=== PATIENT | male | born 1965 | race Caucasian/White ===

== ENCOUNTER 2018-10-27 07:08 | Day surgery (SDC) | payer MEDICAID ==
[~2018-10-27] VITALS: Ht 175.3 cm; Wt 167.8 kg
[~2018-10-27 07:08] MED LIST: IBUP-2353 PO
[2018-10-27 07:42] VITALS: BP 145/92
[2018-10-27] MEDS ORDERED: SODIUM CHLORIDE 0.9% 1000ML 1,000 ML IV ONE (08:04)
[2018-10-27 11:22] VITALS: BP 106/53
[2018-10-27 11:27] VITALS: BP 126/76
[2018-10-27 11:32] VITALS: BP 133/81
== END 2018-10-27 11:47 | disposition home or self-care (01) ==
LOC: DAH 07:08 → ENDO 07:08
PROVIDERS: ATTEND Surgery
DX: K21.9 Gastro-esophageal reflux disease without esophagitis (principal); E66.01 Morbid (severe) obesity due to excess calories; Z68.43 Body mass index [BMI] 50.0-59.9, adult; Z79.1 Long term (current) use of non-steroidal anti-inflammatories (NSAID); Z87.891 Personal history of nicotine dependence; Z72.89 Other problems related to lifestyle; Z82.49 Family history of ischemic heart disease and other diseases of the circulatory system
CPT/HCPCS: 43235; A4606; J7030

== ENCOUNTER 2019-11-30 09:00 | Observation (INO) | payer MEDICAID ==
[~2019-11-30] VITALS: Ht 176.5 cm; Wt 112.6 kg
[~2019-11-30 09:00] MED LIST changes: +FLUT1DIS3 IH; -IBUP-2353 PO; +TAMS-1 PO
[2019-11-30 10:53] LABS: HEMATOCRIT 44.2 % (42-54); LYMPHOCYTES % (AUTO) 21.6 % (21.0-51.0); MEAN CORPUSCULAR HEMOGLOBIN 30.6 pg (27.0-33.0); MEAN CORPUSCULAR HGB CONC 32.4 g/dL (32.0-36.0); MEAN CORPUSCULAR VOLUME 94.6 fL (79-99); MONOCYTES % (AUTO) 5.6 % (3.0-13.0); NEUTROPHILS % (AUTO) 62.5 % (40.0-77.0); PLATELET COUNT (AUTO) 294 K/uL (130-400); RED BLOOD CELL COUNT(AUTO) 4.67 MIL/uL (4.50-6.20); RED CELL DISTRIBUTION WIDTH 14.1 % (11.0-15.5); WHITE BLOOD COUNT (AUTO) 8.8 K/uL (4.8-10.8)
[2019-11-30 11:05] LABS: INR 0.92 (0.85-1.15); PARTIAL THROMBOPLASTIN TIME 27.4 SEC (26.3-35.5)
[2019-12-07] VITALS (17 sets, daily range): BP systolic 114–143; BP diastolic 68–86
[2019-12-07] MEDS ORDERED: LACTATED RINGERS 1000ML 1,000 ML IV ONE ×2 (06:59→10:14)
[2019-12-07] MEDS ORDERED: BUPIVACAINE/PF 0.5% 30ML VIAL ONE (06:59)
[2019-12-07] MEDS: CEFAZOLIN SODIUM 1 GM VIAL ONE ×2 (07:03→08:03)
[2019-12-07] MEDS ORDERED: SUCCINYLCHOLINE CHLORIDE 20 MG/ML 10 ML VIAL ONE (07:50)
[2019-12-07] MEDS ORDERED: MIDAZOLAM HCL 1 MG/ML 2ML VIAL ONE (07:50)
[2019-12-07] MEDS ORDERED: ROCURONIUM 10MG/1ML SYR 10 MG/ML ML ONE (07:50)
[2019-12-07] MEDS ORDERED: PROPOFOL 10 MG/ML 20ML VIAL IV ONE (07:50)
[2019-12-07] MEDS ORDERED: ONDANSETRON HCL 4 MG/2 ML VIAL ONE ×2 (07:50→09:28)
[2019-12-07] MEDS ORDERED: LIDOCAINE PF 2% 5ML ABBOJECT ONE (07:50)
[2019-12-07] MEDS ORDERED: FENTANYL CITRATE PF 50 MCG/1 ML 2ML VIAL ONE ×2 (07:51→08:28)
[2019-12-07] MEDS ORDERED: CEFAZOLIN SODIUM 1 GM VIAL IVP ONE (08:03)
[2019-12-07] MEDS ORDERED: GLYCOPYRROLATE 1 MG/5 ML SYRINGE ONE (08:58)
[2019-12-07] MEDS ORDERED: NEOSTIGMINE 5MG/5ML SYR IV ONE (08:58)
[2019-12-07] MEDS ORDERED: MEPERIDINE-PF 25 MG/ML SYG ONE (09:32)
[2019-12-07] MEDS ORDERED: METOCLOPRAMIDE 10 MG/2 ML VIAL ONE (09:39)
--- NOTE | 2019-12-07 10:10 | NUR ---
POST OP RECEIVED PATIENT AND REPORT FROM VITO FARRIS FROM PACU. PT IN NO DISTRESS. PT ORIENTD TO ROOM AND CALL LIGHT. WILL CONTINUE TO MONITOR PT
--- NOTE | 2019-12-07 10:40 | NUR ---
DISCHARGE D/C INSTRUCTIONS GIVEN TO PT AND SPOUSE. BOTH VOICED UNDERSTANDING. PT TAKEN OUT VIA W/C
== END 2019-12-07 10:40 | disposition home or self-care (01) ==
LOC: DAHIP 12-07 06:26 → EDSTATUS 12-07 09:00
PROVIDERS: ADMIT Surgery; ATTEND Surgery
DX: K81.0 Acute cholecystitis (principal); Z20.828 Contact with and (suspected) exposure to other viral communicable diseases; E66.01 Morbid (severe) obesity due to excess calories; Z98.84 Bariatric surgery status
CPT/HCPCS: 36415; 47562; 71045; 85025; 85610; 85730; 93005; 96360; 96361; A4213; A4215; A4221; A4222; A4223; A4649 ×2; A4663; C1769 ×4; G0378 ×4; J0330; J0690 ×2; J2001; J2175; J2250; J2405 ×2; J2704; J2710; J2765; J3010 ×2; J3490 ×2; J7030 ×2; J7120 ×2; U0003

== ENCOUNTER → 2020-01-11 | Outpatient (CLI) | payer MEDICAID | END | disposition home or self-care (01) | LOC: RAH 10:20 | PROVIDERS: ATTEND Surgery | DX: K42.9 Umbilical hernia without obstruction or gangrene (principal); R18.8 Other ascites; K57.30 Diverticulosis of large intestine without perforation or abscess without bleeding | CPT/HCPCS: 74176 ==

== ENCOUNTER 2021-07-22 17:02 | Emergency (ER) | payer MEDICAID ==
[~2021-07-22] VITALS: Ht 175.3 cm; Wt 68.0 kg
[2021-07-22 17:54] LABS: BASOPHILS % (AUTO) 0.3 % (0.0-5.0); EOSINOPHILS % (AUTO) 0.1 % (0.0-8.0); HEMATOCRIT 42.8 % (42-54); LYMPHOCYTES % (AUTO) 6.7 % (21.0-51.0); MEAN CORPUSCULAR HEMOGLOBIN 30.3 pg (27.0-33.0); MEAN CORPUSCULAR HGB CONC 33.2 g/dL (32.0-36.0); MEAN CORPUSCULAR VOLUME 91.3 fL (79-99); MONOCYTES % (AUTO) 2.9 % (3.0-13.0); NEUTROPHILS % (AUTO) 89.5 % (40.0-77.0); PLATELET COUNT (AUTO) 239 K/uL (130-400); RED BLOOD CELL COUNT(AUTO) 4.69 MIL/uL (4.50-6.20); RED CELL DISTRIBUTION WIDTH 12.9 % (11.0-15.5); WHITE BLOOD COUNT (AUTO) 9.9 K/uL (4.8-10.8)
[2021-07-22 18:03] LABS: CREATININE 0.7 mg/dL (0.5-1.5); POTASSIUM 3.8 mmol/L (3.5-5.1)
[2021-07-22 18:09] LABS: BILIRUBIN,TOTAL 1.5 mg/dL (0.2-1.0); TOTAL PROTEIN, SERUM 6.2 g/dL (6.0-8.3)
[2021-07-22] MEDS ORDERED: 0.9%NACL 1000ML 1,000 ML IV ONE (18:30)
[2021-07-22] MEDS ORDERED: MORPHINE 4 MG SYG IVP ONE (18:30)
[2021-07-22] MEDS ORDERED: ONDANSETRON 4MG INJ IVP ONE (18:30)
[2021-07-22] MEDS ORDERED: HYOS0.124 SL (19:10)
[2021-07-22] MEDS ORDERED: PANT40TA PO (19:10)
[2021-07-22] MEDS ORDERED: ONDA4TAB10 PO (19:10)
[2021-07-22 19:25] VITALS: BP 145/78
[2021-07-22 19:31] LABS: APPEARANCE,URINE Cloudy (CLEAR); BILIRUBIN,URINE Negative (NEGATIVE); COLOR,URINE Yellow (YELLOW); GLUCOSE, URINE (UA) Negative (NEGATIVE); KETONES,URINE 15 mg/dL (NEGATIVE); LEUKOCYTE ESTERASE ,URINE Trace (NEGATIVE); NITRATE,URINE Negative (NEGATIVE); OCCULT BLOOD,URINE Negative (NEGATIVE); PROTEIN,URINE Negative (NEGATIVE)
[2021-07-22 20:40] LABS: AMORPHOUS SEDIMENT,UR Few /LPF (None Seen); BACTERIA,URINE Few /HPF (None Seen); MUCUS,URINE Moderate LPF (None Seen); RBC,URINE 0-1 /HPF (0-1); SQUAMOUS EPITHELIAL CELL,UR Few /HPF (0-2); URIC ACID CRYSTALS,URINE Few /LPF (None Seen)
[2021-07-22 20:41] LABS: HYALINE CASTS, URINE 0-1 /LPF (0-1 /LPF)
== END 2021-07-22 19:26 | disposition home or self-care (01) ==
LOC: EDH 17:02
DX: R10.13 Epigastric pain (principal); R11.2 Nausea with vomiting, unspecified; R19.7 Diarrhea, unspecified; R53.1 Weakness; Z90.49 Acquired absence of other specified parts of digestive tract; Z79.899 Other long term (current) drug therapy
CPT/HCPCS: 36415; 74176; 80053; 81001; 83690; 84484; 85025; 93005; 96361; 96374; 96375; 99285; J2270; J2405; J7030

== ENCOUNTER → 2021-08-03 | Outpatient (CLI) | payer MEDICAID ==
[~2021-08-03] MED LIST changes: +HYOS0.124 SL; +ONDA4TAB10 PO; +PANT40TA PO
== END | disposition home or self-care (01) ==
LOC: RAH 07:40
PROVIDERS: ATTEND Internal Medicine Gastroenterology
DX: R18.8 Other ascites (principal)
CPT/HCPCS: 76700

== ENCOUNTER 2022-05-29 11:01 | Inpatient (IN) | payer MEDICAID ==
[~2022-05-29] VITALS: Ht 175.3 cm; Wt 79.6 kg
[~2022-05-29 11:01] MED LIST changes: -HYOS0.124 SL; -ONDA4TAB10 PO
[2022-05-29 12:01] LABS: BASOPHILS % (AUTO) 0.3 % (0.0-5.0); EOSINOPHILS % (AUTO) 0.4 % (0.0-8.0); HEMATOCRIT 26.3 % (42-54); MEAN CORPUSCULAR HEMOGLOBIN 29.6 pg (27.0-33.0); MEAN CORPUSCULAR HGB CONC 32.3 g/dL (32.0-36.0); MEAN CORPUSCULAR VOLUME 91.6 fL (79-99); MONOCYTES % (AUTO) 6.9 % (3.0-13.0); NEUTROPHILS % (AUTO) 86.6 % (40.0-77.0); PLATELET COUNT (AUTO) 453 K/uL (130-400); RED BLOOD CELL COUNT(AUTO) 2.87 MIL/uL (4.50-6.20); RED CELL DISTRIBUTION WIDTH 14.8 % (11.0-15.5)
[2022-05-29 12:19] LABS: ALBUMIN 1.4 g/dL (3.5-5.0); CREATININE 0.5 mg/dL (0.5-1.5); POTASSIUM 4.5 mmol/L (3.5-5.1); TOTAL PROTEIN, SERUM 5.2 g/dL (6.0-8.3)
[2022-05-29 12:22] LABS: APPEARANCE,URINE CLEAR (CLEAR); BILIRUBIN,URINE NEGATIVE (NEGATIVE); COLOR,URINE YELLOW (YELLOW); GLUCOSE, URINE (UA) NEGATIVE (NEGATIVE); KETONES,URINE NEGATIVE (NEGATIVE); LEUKOCYTE ESTERASE ,URINE NEGATIVE Leu/uL (NEGATIVE); NITRATE,URINE NEGATIVE (NEGATIVE); OCCULT BLOOD,URINE NEGATIVE (NEGATIVE); PROTEIN,URINE 20 mg/dL (NEGATIVE); UROBILINOGEN,URINE 0.2 mg/dL (0.2-1.0)
[2022-05-29 12:34] LABS: MUCUS,URINE FEW LPF (None Seen); SQUAMOUS EPITHELIAL CELL,UR RARE /HPF (0-2)
[2022-05-29 12:39] LABS: B-TYPE NATRIURETIC PEPTIDE 10 pg/mL (0-100)
[2022-05-29] MEDS ORDERED: ACETAMINOPHEN 500 MG TABLET PO PRN (16:00)
[2022-05-29] MEDS ORDERED: TAMSULOSIN HCL 0.4 MG CAP.ER.24H PO ONE (17:00)
[2022-05-29] MEDS ORDERED: IPRATROPIUM 0.5 MG/2.5 ML INH IH PRN (17:00)
[2022-05-29 17:34] LABS: INR 1.09 (0.85-1.15); PROTHROMBIN TIME 11.8 SEC (9.6-11.6)
[2022-05-29 17:36] LABS: HEMOGLOBIN A1C 4.9 % (4.0-6.0); PARTIAL THROMBOPLASTIN TIME 31.6 SEC (26.3-35.5)
[2022-05-29 17:45] LABS: B-TYPE NATRIURETIC PEPTIDE 16 pg/mL (0-100)
[2022-05-29] MEDS ORDERED: METO25TA6 PO (17:57)
[2022-05-29] MEDS ORDERED: FLUT1BLS23 IH (17:57)
[2022-05-29] MEDS ORDERED: AMLO-257 PO (17:57)
[2022-05-29] MEDS ORDERED: ACET5SOL2 PO (17:57)
[2022-05-29] MEDS ORDERED: ONDA-104 PO (17:57)
[2022-05-29] MEDS ORDERED: NAPH1PAC2 PO (17:57)
[2022-05-29] MEDS: BUDESONIDE 0.5 MG/2 ML INH IH SCH ×2 (18:00→18:05)
[2022-05-29 18:22] LABS: ERYTHROCYTE SEDIMENTATION RATE 28 MM/HR (0-20)
[2022-05-29] MEDS ORDERED: TAMSULOSIN HCL 0.4 MG CAP.ER.24H ONE (18:28)
[2022-05-29 19:00] VITALS: BP 121/65
[2022-05-29 20:18] LABS: CREATININE,URINE RANDOM 98 mg/dL (30-135); PROTEIN,URINE RANDOM 43.3 mg/dL (0-11.9); SODIUM,URINE RANDOM < 14 mmol/l (40-220)
[2022-05-29] MEDS: HEPARIN 5,000 UNIT VIAL IV PRN (20:38)
[2022-05-29] MEDS: HEPARIN 25,000 UNITS/250ML D5W 250 ML IV SCH (20:44)
[2022-05-29] MEDS: METOPROLOL TARTRATE 25 MG TAB PO SCH (20:55)
[2022-05-29] MEDS: CEFTRIAXONE 1G VIAL IVP SCH (20:56)
[2022-05-29] MEDS: FAMOTIDINE 20MG VIAL IV SCH (20:56)
[2022-05-29 20:58] LABS: % IRON SATURATION 7.4 % (30-44)
[2022-05-29 23:25] VITALS: BP 104/62
[2022-05-29] MEDS: METRONIDAZOLE 500MG/100ML BAG 100 ML IVPB SCH (23:31)
[2022-05-30 02:40] LABS: BASOPHILS % (AUTO) 0.5 % (0.0-5.0); EOSINOPHILS % (AUTO) 0.9 % (0.0-8.0); HEMATOCRIT 24.7 % (42-54); LYMPHOCYTES % (AUTO) 7.6 % (21.0-51.0); MEAN CORPUSCULAR HEMOGLOBIN 29.5 pg (27.0-33.0); MEAN CORPUSCULAR HGB CONC 31.6 g/dL (32.0-36.0); MEAN CORPUSCULAR VOLUME 93.6 fL (79-99); MONOCYTES % (AUTO) 6.6 % (3.0-13.0); NEUTROPHILS % (AUTO) 83.8 % (40.0-77.0); PLATELET COUNT (AUTO) 362 K/uL (130-400); RED BLOOD CELL COUNT(AUTO) 2.64 MIL/uL (4.50-6.20); RED CELL DISTRIBUTION WIDTH 14.7 % (11.0-15.5)
[2022-05-30 03:01] LABS: ALBUMIN 1.3 g/dL (3.5-5.0); CREATININE 0.5 mg/dL (0.5-1.5); CRP QUANTITATIVE 175.3 mg/L (0.00-9.0); MAGNESIUM 1.8 mg/dL (1.80-2.40); POTASSIUM 4.1 mmol/L (3.5-5.1); TOTAL PROTEIN, SERUM 4.9 g/dL (6.0-8.3)
[2022-05-30 03:07] VITALS: BP 105/65
[2022-05-30] MEDS: HEPARIN 5,000 UNIT VIAL IV PRN (03:42)
[2022-05-30] MEDS: METRONIDAZOLE 500MG/100ML BAG 100 ML IVPB SCH ×3 (05:45→21:03)
[2022-05-30] MEDS ORDERED: BUDESONIDE 0.5 MG/2 ML INH IH ONE (06:20)
[2022-05-30] MEDS: BUDESONIDE 0.5 MG/2 ML INH IH SCH ×2 (07:06→19:48)
[2022-05-30] MEDS: IPRATROPIUM/ALBUTEROL SULFATE 3 ML SOLUTION IH SCH ×4 (07:06→23:50)
[2022-05-30 07:38] VITALS: BP 101/68
[2022-05-30] MEDS: METOPROLOL TARTRATE 25 MG TAB PO SCH ×2 (09:00→21:02)
[2022-05-30] MEDS ORDERED: IOHEXOL-350 75 ML VIAL IV ONE (09:03)
[2022-05-30] MEDS ORDERED: IOHEXOL-350 50ML VIAL IV ONE (09:03)
[2022-05-30] MEDS: IRON SUCROSE COMPLEX 300 MG in 0.9% NACL 250ML 250 ML IV SCH (10:08)
[2022-05-30] MEDS: FAMOTIDINE 20MG VIAL IV SCH ×2 (10:09→21:02)
[2022-05-30] MEDS: MIDODRINE HCL 5 MG TABLET PO SCH ×3 (10:09→21:02)
[2022-05-30] MEDS: CEFTRIAXONE 1G VIAL IVP SCH (10:42)
[2022-05-30] MEDS: FUROSEMIDE 20MG VIAL IV SCH ×2 (10:57→21:04)
[2022-05-30 11:43] VITALS: BP 130/78
[2022-05-30] MEDS: HEPARIN 25,000 UNITS/250ML D5W 250 ML IV SCH (13:21)
[2022-05-30] MEDS ORDERED: SPIRONOLACTONE 25 MG TAB PO ONE (14:00)
[2022-05-30] MEDS: CEFEPIME HCL 1 GM VIAL IVP SCH ×2 (15:02→21:03)
[2022-05-30 16:10] VITALS: BP 108/71
[2022-05-30] MEDS: METOCLOPRAMIDE 10 MG/2 ML VIAL IVP SCH ×2 (16:36→21:02)
[2022-05-30 18:49] VITALS: BP 117/72
[2022-05-30] MEDS: SPIRONOLACTONE 25 MG TAB PO SCH (21:02)
[2022-05-30] MEDS: TAMSULOSIN HCL 0.4 MG CAP.ER.24H PO SCH (21:03)
[2022-05-31] VITALS (7 sets, daily range): BP systolic 103–123; BP diastolic 52–77
[2022-05-31 04:42] LABS: HEMATOCRIT 28.3 % (42-54); MEAN CORPUSCULAR HEMOGLOBIN 29.5 pg (27.0-33.0); MEAN CORPUSCULAR HGB CONC 31.4 g/dL (32.0-36.0); MEAN CORPUSCULAR VOLUME 93.7 fL (79-99); RED BLOOD CELL COUNT(AUTO) 3.02 MIL/uL (4.50-6.20); RED CELL DISTRIBUTION WIDTH 15.1 % (11.0-15.5); WHITE BLOOD COUNT (AUTO) 10.4 K/uL (4.8-10.8)
[2022-05-31] MEDS: CEFEPIME HCL 1 GM VIAL IVP SCH ×3 (04:53→21:30)
[2022-05-31] MEDS: FUROSEMIDE 20MG VIAL IV SCH ×3 (04:54→21:32)
[2022-05-31 04:57] LABS: ALBUMIN 1.4 g/dL (3.5-5.0); CREATININE 0.5 mg/dL (0.5-1.5); MAGNESIUM 1.9 mg/dL (1.80-2.40); PHOSPHORUS 3.2 mg/dL (2.5-4.9); TOTAL PROTEIN, SERUM 5.6 g/dL (6.0-8.3)
[2022-05-31] MEDS: HEPARIN 25,000 UNITS/250ML D5W 250 ML IV SCH ×2 (05:10→22:06)
[2022-05-31] MEDS: METRONIDAZOLE 500MG/100ML BAG 100 ML IVPB SCH ×3 (05:11→21:30)
[2022-05-31] MEDS: BUDESONIDE 0.5 MG/2 ML INH IH SCH ×2 (06:39→19:29)
[2022-05-31] MEDS: IPRATROPIUM/ALBUTEROL SULFATE 3 ML SOLUTION IH SCH ×2 (06:39→11:11)
[2022-05-31] MEDS: MAGNESIUM 2GM PREMIX 50ML 50 ML IV SCH (07:55)
[2022-05-31] MEDS: METOCLOPRAMIDE 10 MG/2 ML VIAL IVP SCH ×4 (07:57→21:29)
[2022-05-31] MEDS: FAMOTIDINE 20MG VIAL IV SCH ×2 (07:58→21:29)
[2022-05-31] MEDS: IRON SUCROSE COMPLEX 300 MG in 0.9% NACL 250ML 250 ML IV SCH (07:58)
[2022-05-31] MEDS: MIDODRINE HCL 5 MG TABLET PO SCH ×3 (07:59→21:29)
[2022-05-31] MEDS: METOPROLOL TARTRATE 25 MG TAB PO SCH (07:59)
[2022-05-31] MEDS: SPIRONOLACTONE 25 MG TAB PO SCH ×2 (07:59→21:31)
[2022-05-31] MEDS: PROTEIN SUPPLEMENT 946 ML BOTTLE PO SCH ×2 (09:00→21:00)
[2022-05-31 10:16] LABS: AMYLASE 79 U/L (25-115); LIPASE 236 U/L (114-286)
[2022-05-31] MEDS ORDERED: IPRATROPIUM/ALBUTEROL SULFATE 3 ML SOLUTION IH PRN (19:30)
[2022-05-31] MEDS ORDERED: LOPERAMIDE HCL 2 MG CAP PO ONE (20:00)
[2022-05-31] MEDS: TAMSULOSIN HCL 0.4 MG CAP.ER.24H PO SCH (21:29)
[2022-06-01 04:32] VITALS: BP 128/85
[2022-06-01] MEDS: CEFEPIME HCL 1 GM VIAL IVP SCH ×3 (05:12→20:02)
[2022-06-01] MEDS: METRONIDAZOLE 500MG/100ML BAG 100 ML IVPB SCH ×3 (05:12→21:11)
[2022-06-01 05:44] LABS: BASOPHILS % (AUTO) 0.4 % (0.0-5.0); EOSINOPHILS % (AUTO) 0.8 % (0.0-8.0); HEMATOCRIT 26.3 % (42-54); MEAN CORPUSCULAR HEMOGLOBIN 29.2 pg (27.0-33.0); MEAN CORPUSCULAR HGB CONC 31.9 g/dL (32.0-36.0); MEAN CORPUSCULAR VOLUME 91.3 fL (79-99); NEUTROPHILS % (AUTO) 82.9 % (40.0-77.0); PLATELET COUNT (AUTO) 382 K/uL (130-400); RED BLOOD CELL COUNT(AUTO) 2.88 MIL/uL (4.50-6.20); RED CELL DISTRIBUTION WIDTH 14.9 % (11.0-15.5); WHITE BLOOD COUNT (AUTO) 10.2 K/uL (4.8-10.8)
[2022-06-01 06:03] LABS: ALBUMIN 1.4 g/dL (3.5-5.0); CREATININE 0.5 mg/dL (0.5-1.5); MAGNESIUM 1.9 mg/dL (1.80-2.40); PHOSPHORUS 2.8 mg/dL (2.5-4.9); TOTAL PROTEIN, SERUM 5.3 g/dL (6.0-8.3)
[2022-06-01] MEDS: METOCLOPRAMIDE 10 MG/2 ML VIAL IVP SCH ×4 (06:43→20:02)
[2022-06-01] MEDS: LOPERAMIDE HCL 2 MG CAP PO SCH (08:00)
[2022-06-01] MEDS: MIDODRINE HCL 5 MG TABLET PO SCH ×3 (08:00→20:08)
[2022-06-01] MEDS: SPIRONOLACTONE 25 MG TAB PO SCH ×2 (08:00→20:02)
[2022-06-01] MEDS: IRON SUCROSE COMPLEX 300 MG in 0.9% NACL 250ML 250 ML IV SCH (08:02)
[2022-06-01] MEDS: FAMOTIDINE 20MG VIAL IV SCH ×2 (08:02→20:02)
[2022-06-01 08:48] VITALS: BP 118/72
[2022-06-01] MEDS: PROTEIN SUPPLEMENT 946 ML BOTTLE PO SCH ×2 (08:59→20:09)
[2022-06-01] MEDS ORDERED: FUROSEMIDE 20MG VIAL IV SCH (09:00)
[2022-06-01 09:19] LABS: BASOPHILS % (AUTO) 0.5 % (0.0-5.0); EOSINOPHILS % (AUTO) 0.8 % (0.0-8.0); HEMATOCRIT 28.4 % (42-54); LYMPHOCYTES % (AUTO) 7.6 % (21.0-51.0); MEAN CORPUSCULAR HEMOGLOBIN 29.2 pg (27.0-33.0); MEAN CORPUSCULAR HGB CONC 31.7 g/dL (32.0-36.0); MEAN CORPUSCULAR VOLUME 92.2 fL (79-99); NEUTROPHILS % (AUTO) 85.4 % (40.0-77.0); PLATELET COUNT (AUTO) 373 K/uL (130-400); RED BLOOD CELL COUNT(AUTO) 3.08 MIL/uL (4.50-6.20); WHITE BLOOD COUNT (AUTO) 10.6 K/uL (4.8-10.8)
[2022-06-01 12:09] VITALS: BP 112/74
[2022-06-01] MEDS: FUROSEMIDE 20MG VIAL IV SCH ×2 (13:14→20:03)
[2022-06-01] MEDS: HEPARIN 25,000 UNITS/250ML D5W 250 ML IV SCH (13:17)
[2022-06-01 16:43] VITALS: BP 118/75
[2022-06-01] MEDS: BUDESONIDE 0.5 MG/2 ML INH IH SCH (19:17)
[2022-06-01] MEDS ORDERED: OCTREOTIDE ACETATE 100 MCG/ML AMP ONE (19:56)
[2022-06-01] MEDS: OCTREOTIDE ACETATE 100 MCG/ML AMP IV SCH (20:02)
[2022-06-01] MEDS: TAMSULOSIN HCL 0.4 MG CAP.ER.24H PO SCH (20:03)
[2022-06-01 20:15] VITALS: BP 117/74
[2022-06-02] VITALS (7 sets, daily range): BP systolic 105–118; BP diastolic 64–75
[2022-06-02] MEDS: CEFEPIME HCL 1 GM VIAL IVP SCH ×3 (04:13→20:06)
[2022-06-02 05:24] LABS: BASOPHILS % (AUTO) 0.5 % (0.0-5.0); EOSINOPHILS % (AUTO) 0.7 % (0.0-8.0); HEMATOCRIT 26.7 % (42-54); LYMPHOCYTES % (AUTO) 7.9 % (21.0-51.0); MEAN CORPUSCULAR HEMOGLOBIN 29.4 pg (27.0-33.0); MEAN CORPUSCULAR HGB CONC 31.5 g/dL (32.0-36.0); MEAN CORPUSCULAR VOLUME 93.4 fL (79-99); MONOCYTES % (AUTO) 6.1 % (3.0-13.0); NEUTROPHILS % (AUTO) 84.1 % (40.0-77.0); PLATELET COUNT (AUTO) 371 K/uL (130-400); RED BLOOD CELL COUNT(AUTO) 2.86 MIL/uL (4.50-6.20); WHITE BLOOD COUNT (AUTO) 11.1 K/uL (4.8-10.8)
[2022-06-02] MEDS: METRONIDAZOLE 500MG/100ML BAG 100 ML IVPB SCH ×3 (05:24→21:50)
[2022-06-02] MEDS: BUDESONIDE 0.5 MG/2 ML INH IH SCH ×2 (07:23→18:34)
[2022-06-02] MEDS: HEPARIN 25,000 UNITS/250ML D5W 250 ML IV SCH ×2 (07:48→23:12)
[2022-06-02] MEDS: FUROSEMIDE 20MG VIAL IV SCH ×3 (07:49→21:34)
[2022-06-02] MEDS: METOCLOPRAMIDE 10 MG/2 ML VIAL IVP SCH ×4 (07:49→21:34)
[2022-06-02] MEDS: SPIRONOLACTONE 25 MG TAB PO SCH ×2 (07:50→21:35)
[2022-06-02] MEDS: MIDODRINE HCL 5 MG TABLET PO SCH ×3 (07:50→21:35)
[2022-06-02] MEDS: LOPERAMIDE HCL 2 MG CAP PO SCH (08:04)
[2022-06-02] MEDS: FAMOTIDINE 20MG VIAL IV SCH ×2 (08:16→21:34)
[2022-06-02] MEDS: OCTREOTIDE ACETATE 100 MCG/ML AMP IV SCH ×3 (08:46→21:34)
[2022-06-02] MEDS: PROTEIN SUPPLEMENT 946 ML BOTTLE PO SCH ×2 (09:00→21:00)
[2022-06-02] MEDS: TAMSULOSIN HCL 0.4 MG CAP.ER.24H PO SCH (21:35)
[2022-06-03 03:47] VITALS: BP 110/73
[2022-06-03 04:02] LABS: BASOPHILS % (AUTO) 0.5 % (0.0-5.0); EOSINOPHILS % (AUTO) 0.8 % (0.0-8.0); HEMATOCRIT 27.4 % (42-54); LYMPHOCYTES % (AUTO) 9.5 % (21.0-51.0); MEAN CORPUSCULAR HEMOGLOBIN 28.8 pg (27.0-33.0); MEAN CORPUSCULAR HGB CONC 30.3 g/dL (32.0-36.0); MEAN CORPUSCULAR VOLUME 95.1 fL (79-99); MONOCYTES % (AUTO) 7.1 % (3.0-13.0); NEUTROPHILS % (AUTO) 81.3 % (40.0-77.0); PLATELET COUNT (AUTO) 431 K/uL (130-400); RED BLOOD CELL COUNT(AUTO) 2.88 MIL/uL (4.50-6.20); RED CELL DISTRIBUTION WIDTH 15.4 % (11.0-15.5)
[2022-06-03 04:13] LABS: ALBUMIN 1.4 g/dL (3.5-5.0); CREATININE 0.7 mg/dL (0.5-1.5); MAGNESIUM 1.8 mg/dL (1.80-2.40); POTASSIUM 3.9 mmol/L (3.5-5.1); TOTAL PROTEIN, SERUM 5.5 g/dL (6.0-8.3)
[2022-06-03] MEDS: CEFEPIME HCL 1 GM VIAL IVP SCH (04:25)
[2022-06-03 04:48] LABS: % IRON SATURATION 27.6 % (30-44)
[2022-06-03] MEDS ORDERED: NACL 0.9% IV SCH (05:00)
[2022-06-03] MEDS ORDERED: POTASSIUM PHOSPHATE IV SCH (05:00)
[2022-06-03] MEDS ORDERED: NEUTRA-PHOS PACKET 1 EACH PO SCH (05:00)
[2022-06-03] MEDS ORDERED: CALCIUM GLUC 1GM 1 GM in 0.9%NACL 100ML 100 ML IV SCH (05:00)
[2022-06-03] MEDS: METRONIDAZOLE 500MG/100ML BAG 100 ML IVPB SCH (05:11)
[2022-06-03] MEDS: MAGNESIUM 2GM PREMIX 50ML 50 ML IV SCH (05:52)
[2022-06-03] MEDS: BUDESONIDE 0.5 MG/2 ML INH IH SCH (06:50)
[2022-06-03] MEDS ORDERED: POTASSIUM PHOS 15 mMOL+NS250ML 250 ML IV PRN (07:00)
[2022-06-03 07:09] VITALS: BP 111/73
[2022-06-03] MEDS: METOCLOPRAMIDE 10 MG/2 ML VIAL IVP SCH (07:55)
[2022-06-03] MEDS ORDERED: EPOETIN ALFA-EPBX (NON-ESRD) 10,000 UNIT/ML VIAL SQ SCH (08:30)
[2022-06-03] MEDS: OCTREOTIDE ACETATE 100 MCG/ML AMP IV SCH ×3 (09:00→21:32)
[2022-06-03] MEDS ORDERED: MEROPENEM 1 GM VIAL IVPB SCH (09:00)
[2022-06-03] MEDS: FAMOTIDINE 20MG VIAL IV SCH ×2 (09:00→21:33)
[2022-06-03] MEDS: NEUTRA-PHOS PACKET 1 EACH PO SCH ×5 (09:00→21:35)
[2022-06-03] MEDS ORDERED: RENAL DOSE IV SCH (09:00)
[2022-06-03] MEDS: SPIRONOLACTONE 25 MG TAB PO SCH ×2 (09:01→21:36)
[2022-06-03] MEDS: FUROSEMIDE 20MG VIAL IV SCH ×3 (09:01→21:33)
[2022-06-03] MEDS: MIDODRINE HCL 5 MG TABLET PO SCH ×3 (09:02→21:33)
[2022-06-03] MEDS: MEROPENEM 1 GM VIAL IVPB SCH ×2 (09:19→16:19)
[2022-06-03 11:30] VITALS: BP 117/75
[2022-06-03] MEDS: HEPARIN 5,000 UNIT VIAL IV PRN (12:02)
[2022-06-03] MEDS: ALBUMIN (HUMAN) 25% 50 ML IV SCH ×3 (12:27→17:53)
[2022-06-03 15:48] VITALS: BP 118/71
[2022-06-03] MEDS: HEPARIN 25,000 UNITS/250ML D5W 250 ML IV SCH (18:24)
[2022-06-03 18:54] VITALS: BP 119/75
[2022-06-03] MEDS: TAMSULOSIN HCL 0.4 MG CAP.ER.24H PO SCH (21:33)
[2022-06-03 22:44] VITALS: BP 121/71
[2022-06-04] MEDS: MEROPENEM 1 GM VIAL IVPB SCH ×3 (00:58→17:24)
[2022-06-04 03:17] VITALS: BP 114/71
[2022-06-04 03:41] LABS: HEMATOCRIT 24.7 % (42-54); MEAN CORPUSCULAR HEMOGLOBIN 29.3 pg (27.0-33.0); MEAN CORPUSCULAR HGB CONC 31.2 g/dL (32.0-36.0); MEAN CORPUSCULAR VOLUME 93.9 fL (79-99); RED BLOOD CELL COUNT(AUTO) 2.63 MIL/uL (4.50-6.20); WHITE BLOOD COUNT (AUTO) 10.4 K/uL (4.8-10.8)
[2022-06-04 03:56] LABS: CREATININE 0.5 mg/dL (0.5-1.5); MAGNESIUM 1.9 mg/dL (1.80-2.40); PHOSPHORUS 2.4 mg/dL (2.5-4.9); POTASSIUM 3.5 mmol/L (3.5-5.1)
[2022-06-04 06:33] VITALS: BP 116/76
[2022-06-04] MEDS ORDERED: IRON SUCROSE COMPLEX 500 MG in 0.9%NACL 50ML 50 ML IV SCH (07:00)
[2022-06-04] MEDS: OCTREOTIDE ACETATE 100 MCG/ML AMP IV SCH ×3 (08:58→21:00)
[2022-06-04] MEDS: FAMOTIDINE 20MG VIAL IV SCH ×2 (08:58→21:03)
[2022-06-04] MEDS: FUROSEMIDE 20MG VIAL IV SCH ×3 (08:58→21:03)
[2022-06-04] MEDS: NEUTRA-PHOS PACKET 1 EACH PO SCH ×6 (09:00→21:03)
[2022-06-04] MEDS: SPIRONOLACTONE 25 MG TAB PO SCH ×2 (09:00→21:02)
[2022-06-04] MEDS: MIDODRINE HCL 5 MG TABLET PO SCH ×3 (09:00→21:03)
[2022-06-04] MEDS: ONDANSETRON 4MG INJ IVP PRN (11:30)
[2022-06-04 11:38] VITALS: BP 147/78
[2022-06-04 16:00] VITALS: BP 111/79
[2022-06-04] MEDS ORDERED: MIDAZOLAM HCL 1 MG/ML 2ML VIAL ONE (18:35)
[2022-06-04] MEDS ORDERED: FENTANYL CITRATE PF 50 MCG/1 ML 2ML VIAL ONE (18:35)
[2022-06-04] MEDS: TAMSULOSIN HCL 0.4 MG CAP.ER.24H PO SCH (21:02)
[2022-06-04 21:20] VITALS: BP 116/76
[2022-06-04 23:29] VITALS: BP 103/66
[2022-06-05] MEDS: MEROPENEM 1 GM VIAL IVPB SCH ×3 (01:01→16:51)
[2022-06-05 03:44] VITALS: BP 109/75
[2022-06-05 05:43] LABS: HEMATOCRIT 29.7 % (42-54); MEAN CORPUSCULAR HEMOGLOBIN 29.5 pg (27.0-33.0); MEAN CORPUSCULAR HGB CONC 30.6 g/dL (32.0-36.0); MEAN CORPUSCULAR VOLUME 96.4 fL (79-99); RED BLOOD CELL COUNT(AUTO) 3.08 MIL/uL (4.50-6.20); RED CELL DISTRIBUTION WIDTH 16.8 % (11.0-15.5); WHITE BLOOD COUNT (AUTO) 10.7 K/uL (4.8-10.8)
[2022-06-05 06:10] LABS: ALBUMIN 1.9 g/dL (3.5-5.0); CREATININE 0.5 mg/dL (0.5-1.5); MAGNESIUM 1.9 mg/dL (1.80-2.40); PHOSPHORUS 2.4 mg/dL (2.5-4.9); POTASSIUM 3.6 mmol/L (3.5-5.1)
[2022-06-05 08:00] VITALS: BP 108/73
[2022-06-05] MEDS: FUROSEMIDE 20MG VIAL IV SCH ×3 (09:00→22:55)
[2022-06-05] MEDS: FAMOTIDINE 20MG VIAL IV SCH ×2 (09:24→22:55)
[2022-06-05] MEDS: MIDODRINE HCL 5 MG TABLET PO SCH ×3 (09:24→22:53)
[2022-06-05] MEDS: SPIRONOLACTONE 25 MG TAB PO SCH ×2 (09:25→22:53)
[2022-06-05] MEDS: OCTREOTIDE ACETATE 100 MCG/ML AMP IV SCH ×3 (09:25→22:55)
[2022-06-05] MEDS: NEUTRA-PHOS PACKET 1 EACH PO SCH ×2 (10:19→14:09)
[2022-06-05 11:22] VITALS: BP 102/69
[2022-06-05 14:43] LABS: INR 1.22 (0.85-1.15); PROTHROMBIN TIME 13.1 SEC (9.6-11.6)
[2022-06-05 14:45] LABS: PARTIAL THROMBOPLASTIN TIME 32.3 SEC (26.3-35.5)
[2022-06-05 16:00] VITALS: BP 106/71
[2022-06-05] MEDS: HEPARIN 25,000 UNITS/250ML D5W 250 ML IV SCH (16:34)
[2022-06-05] MEDS: HEPARIN 5,000 UNIT VIAL IV PRN (16:45)
[2022-06-05 19:00] VITALS: BP 110/73
[2022-06-05] MEDS: TAMSULOSIN HCL 0.4 MG CAP.ER.24H PO SCH (22:53)
[2022-06-05 23:41] VITALS: BP 112/76
[2022-06-06] MEDS: MEROPENEM 1 GM VIAL IVPB SCH ×3 (01:14→17:58)
[2022-06-06 04:00] VITALS: BP 108/77
[2022-06-06 05:50] LABS: MEAN CORPUSCULAR HEMOGLOBIN 30.3 pg (27.0-33.0); MEAN CORPUSCULAR HGB CONC 31.9 g/dL (32.0-36.0); MEAN CORPUSCULAR VOLUME 95.1 fL (79-99); RED BLOOD CELL COUNT(AUTO) 2.84 MIL/uL (4.50-6.20); WHITE BLOOD COUNT (AUTO) 9.7 K/uL (4.8-10.8)
[2022-06-06 06:10] LABS: CREATININE 0.5 mg/dL (0.5-1.5); MAGNESIUM 1.7 mg/dL (1.80-2.40); PHOSPHORUS 2.4 mg/dL (2.5-4.9); POTASSIUM 3.7 mmol/L (3.5-5.1)
[2022-06-06 08:00] VITALS: BP 110/79
[2022-06-06] MEDS: FAMOTIDINE 20MG VIAL IV SCH (09:39)
[2022-06-06] MEDS: SPIRONOLACTONE 25 MG TAB PO SCH ×2 (09:39→22:53)
[2022-06-06] MEDS: ONDANSETRON 4MG INJ IVP PRN ×2 (09:39→15:41)
[2022-06-06] MEDS: MIDODRINE HCL 5 MG TABLET PO SCH ×3 (09:39→22:52)
[2022-06-06] MEDS: FUROSEMIDE 20MG VIAL IV SCH ×2 (09:39→15:42)
[2022-06-06] MEDS: OCTREOTIDE ACETATE 100 MCG/ML AMP IV SCH ×3 (09:39→22:53)
[2022-06-06] MEDS ORDERED: ALTEPLASE 2MG VIAL 2 MG/VIAL VIAL IVCATH SCH (11:00)
[2022-06-06 12:00] VITALS: BP 108/74
[2022-06-06] MEDS ORDERED: HEPARIN 5,000 UNIT VIAL IV SCH (15:30)
[2022-06-06] MEDS: MAGNESIUM 2GM PREMIX 50ML 50 ML IV SCH (15:42)
[2022-06-06 16:00] VITALS: BP 113/77
[2022-06-06] MEDS: HEPARIN 25,000 UNITS/250ML D5W 250 ML IV SCH (16:09)
[2022-06-06 20:00] VITALS: BP 107/72
[2022-06-06] MEDS ORDERED: RIVAROXABAN 20 MG TABLET PO SCH (21:00)
[2022-06-06] MEDS: TAMSULOSIN HCL 0.4 MG CAP.ER.24H PO SCH (22:51)
[2022-06-06] MEDS: FAMOTIDINE 20MG TAB PO SCH (22:52)
[2022-06-06] MEDS: NEUTRA-PHOS PACKET 1 EACH PO SCH (22:53)
[2022-06-07] VITALS: BP 107/72
[2022-06-07] MEDS: MEROPENEM 1 GM VIAL IVPB SCH ×2 (01:43→08:47)
[2022-06-07 04:00] VITALS: BP 111/71
[2022-06-07 06:35] LABS: HEMATOCRIT 27.8 % (42-54); MEAN CORPUSCULAR HGB CONC 31.3 g/dL (32.0-36.0); MEAN CORPUSCULAR VOLUME 95.9 fL (79-99); RED BLOOD CELL COUNT(AUTO) 2.9 MIL/uL (4.50-6.20); RED CELL DISTRIBUTION WIDTH 17.2 % (11.0-15.5); WHITE BLOOD COUNT (AUTO) 10.1 K/uL (4.8-10.8)
[2022-06-07 06:47] LABS: CREATININE 0.5 mg/dL (0.5-1.5); PHOSPHORUS 2.3 mg/dL (2.5-4.9); POTASSIUM 3.9 mmol/L (3.5-5.1)
[2022-06-07 08:00] VITALS: BP 137/58
[2022-06-07] MEDS: FAMOTIDINE 20MG TAB PO SCH (08:44)
[2022-06-07] MEDS: SPIRONOLACTONE 25 MG TAB PO SCH (08:46)
[2022-06-07] MEDS: NEUTRA-PHOS PACKET 1 EACH PO SCH ×2 (08:48→14:23)
[2022-06-07] MEDS: MIDODRINE HCL 5 MG TABLET PO SCH ×2 (08:48→14:25)
[2022-06-07] MEDS: OCTREOTIDE ACETATE 100 MCG/ML AMP IV SCH ×2 (09:00→14:23)
[2022-06-07 11:42] VITALS: BP 111/75
[2022-06-07 16:00] VITALS: BP 111/72
== END 2022-06-07 18:40 | disposition home or self-care (01) | DRG 720 ==
LOC: EDH 11:01 → EDHIP 15:51 → 2AH 19:13 → 3BH 06-04 14:35
PROVIDERS: ADMIT Internal Medicine; ATTEND Internal Medicine
PROC: 0D963ZZ Drainage of Stomach, Percutaneous Approach (ICD-10-PCS; principal; 2022-06-04)
DX: A41.9 Sepsis, unspecified organism (principal); J96.01 Acute respiratory failure with hypoxia; K55.059 Acute (reversible) ischemia of intestine, part and extent unspecified; I81 Portal vein thrombosis; E43 Unspecified severe protein-calorie malnutrition; J94.8 Other specified pleural conditions; K56.600 Partial intestinal obstruction, unspecified as to cause; D68.59 Other primary thrombophilia; E88.09 Other disorders of plasma-protein metabolism, not elsewhere classified; K65.2 Spontaneous bacterial peritonitis; R18.8 Other ascites; K74.60 Unspecified cirrhosis of liver; D50.9 Iron deficiency anemia, unspecified; D75.839 Thrombocytosis, unspecified; R54 Age-related physical debility; E87.20 Acidosis, unspecified; K55.069 Acute infarction of intestine, part and extent unspecified; E87.1 Hypo-osmolality and hyponatremia; E83.39 Other disorders of phosphorus metabolism; I10 Essential (primary) hypertension; J44.9 Chronic obstructive pulmonary disease, unspecified; N40.1 Benign prostatic hyperplasia with lower urinary tract symptoms; Z79.01 Long term (current) use of anticoagulants; Z86.718 Personal history of other venous thrombosis and embolism; Z98.84 Bariatric surgery status; Z68.25 Body mass index [BMI] 25.0-25.9, adult
CPT/HCPCS: 10030; 36415; 71045; 71270; 74018; 74176; 74178; 76700; 76705; 77012; 80048; 80053; 81001; 82040; 82140; 82150; 82570; 82607; 82728; 82746; 82948; 83036; 83540; 83550; 83605; 83690; 83735; 83880; 84100; 84134; 84145; 84156; 84300; 84443; 84484; 85025; 85027; 85045; 85610; 85651; 85730; 86038; 86140; 86215; 86235; 86850; 86900; 86901; 87040; 87324; 93005; 93306; 93970; 94640; 94664; 97039; 99152; 99153; G0378; J0692; J0696; J1644; J1756; J1940; J2185; J2250; J2354; J2405; J2765; J2997; J3010; J3475; J3490; J7050; P9047; Q9967

== ENCOUNTER → 2022-06-24 | Outpatient (CLI) | payer MEDICAID ==
[~2022-06-24] MED LIST changes: +FLUT1BLS23 IH; -FLUT1DIS3 IH; +IOHEXOL-350 75 ML VIAL IV ONE; +NAPH1PAC2 PO; +ONDA-104 PO
== END | disposition home or self-care (01) ==
LOC: RAH 09:44
PROVIDERS: ATTEND Surgery
DX: K42.9 Umbilical hernia without obstruction or gangrene (principal); J98.11 Atelectasis; R91.8 Other nonspecific abnormal finding of lung field; M47.815 Spondylosis without myelopathy or radiculopathy, thoracolumbar region; R60.1 Generalized edema; K57.90 Diverticulosis of intestine, part unspecified, without perforation or abscess without bleeding; I70.0 Atherosclerosis of aorta; Z90.49 Acquired absence of other specified parts of digestive tract
CPT/HCPCS: 74177; Q9967